=== PATIENT | female | born 1970 | race Caucasian/White ===

== ENCOUNTER → 2016-05-31 | Outpatient (CLI) | payer BC | LOC: COL.VAS 08:50 | DX: I10 Essential (primary) hypertension (principal) ==

== ENCOUNTER 2018-02-14 19:57 | Emergency (ER) | payer BC ==
[~2018-02-14] VITALS: Ht 157.5 cm; Wt 84.9 kg
[2018-02-14 19:59] VITALS: TEMP 98.2
[2018-02-14 20:34] LABS: COLLECTION METHOD CLEAN CATCH
[2018-02-14] MEDS ORDERED: ADDERALL XR20 MG PO (20:37)
[2018-02-14] MEDS ORDERED: NORVASC 5MG5 MG/TAB PO (20:37)
[2018-02-14] MEDS ORDERED: PROZAC 20MG20 MG PO (20:37)
[2018-02-14] MEDS ORDERED: KAPSPARGO SPRIN25 MG PO (20:38)
[2018-02-14 20:47] LABS: BASO % 0.5 % (0.0-2.0); EOS # 0.2 (0.0-0.7); EOS % 2.8 % (0-4.0); GRAN # 4.6 (1.4-6.5); GRAN % 54.8 % (42.2-75.2); HEMATOCRIT 43.2 % (37.0-47.0); HEMOGLOBIN 14.5 g/dl (12.5-16.0); LYMPH % 35.3 % (20.0-51.0); MEAN CELL VOLUME 93 fl (80.0-100.0); MEAN CORPUSCULAR HEMOGLOBIN 31 pg (27.0-31.0); MEAN CORPUSCULAR HGB CONC 34 g/dl (33.0-37.0); MEAN PLATELET VOLUME 9.7 fl (7.4-10.4); MONO # 0.5 (0.1-0.6); MONO % 5.7 % (1.7-9.3); PLATELET COUNT 255 K/mm3 (130-400); RED BLOOD COUNT 4.67 M/mm3 (4.10-5.30); REDCELL DISTRIBUTION WIDTH-CV 12.3 % (11.5-14.5)
[2018-02-14 20:48] LABS: MUCOUS Present /lpf; PH 5 (5-8); URINE APPEARANCE Clear; URINE BACTERIA None Seen /hpf; URINE BILIRUBIN Negative (NEGATIVE); URINE BLOOD Negative (NEGATIVE); URINE COLOR Yellow; URINE GLUCOSE Negative (NEGATIVE); URINE KETONE Negative (NEGATIVE); URINE LEUKOCYTE ESTERASE Negative (NEGATIVE); URINE NITRATE Negative (NEGATIVE); URINE PROTEIN(semi-quant) Negative (NEGATIVE); URINE RBC 0-2 /hpf; URINE UROBILINOGEN Negative (NEGATIVE)
[2018-02-14 20:49] LABS: ALBUMIN 3.9 gm/dL (3.5-5.0); BILIRUBIN,TOTAL 0.6 mg/dL (0.0-1.0); CALCIUM 9.4 mg/dL (8.4-10.2); CREATININE, serum 0.69 mg/dL (0.52-1.25); POTASSIUM 3.8 mmol/L (3.4-5.0); TOTAL PROTEIN 7.2 gm/dL (6.4-8.2)
[2018-02-14 21:05] LABS: PROLACTIN 16.8 ng/mL (3.0-18.6)
[2018-02-14 21:33] VITALS: BP 127/85; PULSE 69
== END 2018-02-14 21:37 | disposition home or self-care (01) ==
LOC: COL.ER 19:57
PROVIDERS: Family Medicine
DX: R51 Headache (principal); Z86.018 Personal history of other benign neoplasm
CPT/HCPCS: J0595

== ENCOUNTER → 2018-02-14 | Outpatient (CLI) | payer BC ==
[~2018-02-14] MED LIST: ADDERALL XR20 MG PO; KAPSPARGO SPRIN25 MG PO; NORVASC 5MG5 MG/TAB PO; PROZAC 20MG20 MG PO
== END ==
LOC: MC.RAD 07:35
DX: Z12.31 Encounter for screening mammogram for malignant neoplasm of breast (principal)

== ENCOUNTER → 2018-04-06 | Outpatient (CLI) | payer BC | LOC: COL.RAD 08:35 | DX: M99.71 Connective tissue and disc stenosis of intervertebral foramina of cervical region (principal); M47.812 Spondylosis without myelopathy or radiculopathy, cervical region; M48.02 Spinal stenosis, cervical region; G93.5 Compression of brain ==

== ENCOUNTER → 2018-05-04 | Outpatient (CLI) | payer BC | LOC: COL.RAD 11:44 | DX: D17.21 Benign lipomatous neoplasm of skin and subcutaneous tissue of right arm (principal) ==

== ENCOUNTER → 2019-05-09 | Outpatient (CLI) | payer BC | LOC: MC.RAD 07:11 | DX: Z12.31 Encounter for screening mammogram for malignant neoplasm of breast (principal); N63.21 Unspecified lump in the left breast, upper outer quadrant ==

== ENCOUNTER → 2019-05-14 | Outpatient (CLI) | payer BC | LOC: MC.RAD 13:53 | DX: N60.01 Solitary cyst of right breast (principal) ==

== ENCOUNTER → 2019-07-05 | Outpatient (CLI) | payer BC | LOC: COL.RAD 07:01 | DX: R10.11 Right upper quadrant pain (principal); Z90.49 Acquired absence of other specified parts of digestive tract ==

== ENCOUNTER → 2019-12-02 | Outpatient (CLI) | payer BC | LOC: MC.RAD 07:21 | DX: N60.02 Solitary cyst of left breast (principal) ==

== ENCOUNTER → 2020-06-08 | Outpatient (CLI) | payer BC | LOC: MC.RAD 07:30 | DX: R92.2 Inconclusive mammogram (principal) ==

== ENCOUNTER → 2020-09-17 | Outpatient (CLI) | payer BC | LOC: MC.RAD 10:59 | DX: N64.4 Mastodynia (principal) ==

== ENCOUNTER 2021-09-08 09:42 | Emergency (ER) | payer BC ==
[~2021-09-08] VITALS: Ht 157.5 cm; Wt 63.6 kg
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
[2021-09-08 13:07] VITALS: BP 149/97; PULSE 84; TEMP 98.5
== END 2021-09-08 13:07 | disposition home or self-care (01) ==
LOC: COL.ER 09:42
DX: S24.109A Unspecified injury at unspecified level of thoracic spinal cord, initial encounter (principal); S40.012A Contusion of left shoulder, initial encounter; S40.011A Contusion of right shoulder, initial encounter; S80.02XA Contusion of left knee, initial encounter; S80.01XA Contusion of right knee, initial encounter; S40.022A Contusion of left upper arm, initial encounter; S40.021A Contusion of right upper arm, initial encounter; S09.90XA Unspecified injury of head, initial encounter; M54.2 Cervicalgia; Z98.890 Other specified postprocedural states; Y04.8XXA Assault by other bodily force, initial encounter
CPT/HCPCS: J1200; J1885; J2765; J7030

== ENCOUNTER 2021-10-07 19:40 | Emergency (ER) | payer BC ==
[~2021-10-07] VITALS: Ht 157.5 cm; Wt 65.9 kg
[2021-10-07 21:40] VITALS: BP 140/93; PULSE 80; TEMP 98.1
== END 2021-10-07 21:40 | disposition home or self-care (01) ==
LOC: COL.ER 19:40
DX: F07.81 Postconcussional syndrome (principal); Z28.310 Unvaccinated for COVID-19

== ENCOUNTER 2022-08-23 22:44 | Emergency (ER) | payer BC ==
[~2022-08-23] VITALS: Ht 157.5 cm; Wt 70.5 kg
[2022-08-23 22:51] VITALS: BP 150/93; TEMP 98
[2022-08-24] MEDS ORDERED: NAPROSYN500 MG PO (00:01)
[2022-08-24 00:09] VITALS: PULSE 79
== END 2022-08-24 00:09 | disposition home or self-care (01) ==
LOC: COL.ER 22:44
DX: M25.562 Pain in left knee (principal); Z98.890 Other specified postprocedural states; Z28.310 Unvaccinated for COVID-19
CPT/HCPCS: J1885

== ENCOUNTER 2023-03-01 20:15 | Emergency (ER) | payer SELFPAY ==
[~2023-03-01] VITALS: Ht 157.5 cm; Wt 79.5 kg
[~2023-03-01 20:15] MED LIST changes: +CRUTCHES MC; +NAPROSYN500 MG PO; +NORCO 325 MG-51 TAB PO
[2023-03-01] MEDS ORDERED: NORCO 325 MG-51 TAB PO (22:08)
[2023-03-01] MEDS ORDERED: CEPHALEXIN500 M1 PO (23:15)
[2023-03-01 23:50] VITALS: BP 113/77; PULSE 78; TEMP 97.7
== END 2023-03-01 23:50 | disposition home or self-care (01) ==
LOC: COL.ER 20:15
DX: S01.81XA Laceration without foreign body of other part of head, initial encounter (principal); S01.21XA Laceration without foreign body of nose, initial encounter; S01.511A Laceration without foreign body of lip, initial encounter; S81.002A Unspecified open wound, left knee, initial encounter; S81.001A Unspecified open wound, right knee, initial encounter; S41.002A Unspecified open wound of left shoulder, initial encounter; Z28.310 Unvaccinated for COVID-19; V28.59XA Other motorcycle passenger injured in noncollision transport accident in traffic accident, initial encounter; Y92.410 Unspecified street and highway as the place of occurrence of the external cause; Y99.8 Other external cause status
CPT/HCPCS: J1885

== ENCOUNTER → 2024-05-01 | Outpatient (CLI) | payer OTHER ==
[~2024-05-01] MED LIST changes: +CEPHALEXIN500 M1 PO
== END ==
LOC: MC.RAD 06:46
DX: Z12.31 Encounter for screening mammogram for malignant neoplasm of breast (principal); N63.11 Unspecified lump in the right breast, upper outer quadrant